=== PATIENT | male | born 1995 | race Hispanic/Latino ===

== ENCOUNTER 2020-07-05 15:18 | Emergency (ER) | payer OTHER ==
[2020-07-05] MEDS ORDERED: HYDROcodone 10MG/APAP 325MG 1 EA TAB PO ONE (15:38)
[2020-07-05 15:41] VITALS: O2SAT 98
--- NOTE | 2020-07-05 15:44 | ED.PDOC ---
History of Present Illness - General Chief Complaint: Trauma Stated Complaint: Fall from 5 feet, neck pain Time Seen by Provider: 07/05/20 15:38 Source: patient, RN notes reviewed Exam Limitations: no limitations - History of Present Illness Initial Comments: The patient is a 25 year old with no significant past medical history who presents with headache and neck pain. He states that he was working on a raised platform when he slipped and fell into a ditch. He states that he fell around 6 feet, maybe a bit more, and landed directly on his head. He did experience a brief LOC that he estimates lasted only a few seconds. He complains of headache, neck pain, upper back pain and chest wall pain. No focal weakness, numbness or tingling. No other complaints at this time. Allergies/Adverse Reactions: Allergies NO KNOWN ALLERGY Allergy (Verified 07/05/20 15:31) Home Medications: Ambulatory Orders NK 07/05/20 Review of Systems - Review of Systems Constitutional: Denies: chills, fever, weakness EENTM: Denies: eye pain, double vision, nose pain, nose congestion, throat pain, throat swelling Respiratory: Denies: cough, short of breath Cardiology: States: chest pain - chest wall pain Gastrointestinal/Abdominal: Denies: abdominal pain, nausea, vomiting Genitourinary: States: no symptoms reported Musculoskeletal: States: back pain, muscle pain, muscle stiffness, neck pain Skin: States: no symptoms reported Neurological: States: headache. Denies: numbness, paresthesia, tingling, weakness Endocrine: States: no symptoms reported Hematologic/Lymphatic: States: no symptoms reported All other Systems: Reviewed and Negative Family Medical History - Family History Mother Family History: Unknown Living Status: Unknown Physical Exam - Physical Exam General Appearance: Alert, Comfortable, No apparent distress Eye Exam: bilateral normal Ears, Nose, Throat: hearing grossly normal, normal ENT inspection Neck: other - C-collar placed on arrival Respiratory: no respiratory distress, no accessory muscle use, other - mild midline chest tenderness to palpation Cardiovascular/Chest: normal peripheral pulses, regular rate, rhythm, no edema, no gallop, no murmur Gastrointestinal/Abdominal: non tender, soft Back Exam: muscle spasm - paraspinous tenderness at the level of the thoracic spine, no bony tenderness, stepoff or deformity Extremity: normal range of motion, non-tender, normal inspection Neurologic: no motor/sensory deficits, alert, normal mood/affect, oriented x 3 Skin Exam: normal color Progress - Progress Progress: 07/05/20 15:46 Cervical collar placed on arrival. There is no weakness, numbness, tingling or focal neurologic complaint 07/05/20 16:32 Patient reassessed, workup as above. There is no radiographic evidence for acute injury. His pain is controlled, no neurologic symptoms. Will continue outpatient symptomatic management and he will follow up with his PCP. Home care instructions and return indications reviewed. - Results/Orders Results/Orders: Chest X-ray: Study: Single Frontal Radiograph of the Chest. Indication:chest wall pain Comparison: None Impression: Heart size normal. Lungs clear. No acute osseous abnormality. T-Spine X-ray: 3 radiographs thoracic spine Indication: back pain s/p fall Comparison: None Impression: Vertebral body height maintained. No acute fracture or malalignment. CT Head: Study: CT of the Head. Indication: fall > 6 feet with LOC Technique: Axial CT images of the head were acquired without intravenous contrast. This exam was performed according to our departmental dose-optimization program, which includes automated exposure control, adjustment of the mA and/or kV according to patient size and/or use of iterative reconstruction technique. Comparison: None. Findings: No acute ischemia, acute hemorrhage, mass, mass effect, midline shift, or extra-axial fluid collection identified by CT. Ventricles are normal in configuration without hydrocephalus. Brain parenchyma demonstrates a normal appearance for patient age. Paranasal sinuses are adequately aerated. Mastoid air cells are adequately aerated. Osseous structures and soft tissues are unremarkable. Impression: No acute intracranial abnormality by CT. Electronically signed by: Tacos Pérez MD 07/05/2020 4:22 PM [facility] - 2[address] CT Cervical Spine: Study: CT cervical spine. Indication: fall from > 6 feet with LOC, neck pain Technique: Axial CT images were acquired through the cervical spine without intravenous contrast. Coronal and sagittal reformats performed. This exam was performed according to our departmental dose-optimization program, which includes automated exposure control, adjustment of the mA and/or kV according to patient size and/or use of iterative reconstruction technique. Comparison: None Findings: Vertebral body height maintained. Straightening cervical spine. No acute fracture or subluxation. No high-grade stenosis. Impression: No acute cervical fracture. Departure - Departure Clinical Impression: Closed head injury Qualifiers: Encounter type: initial encounter Qualified Code(s): S09.90XA - Unspecified injury of head, initial encounter Cervical muscle strain Qualifiers: Encounter type: initial encounter Qualified Code(s): S16.1XXA - Strain of muscle, fascia and tendon at neck level, initial encounter Disposition: Discharge to Home or Self Care Condition: Good Departure Forms: ED Discharge - Pt. Copy, Patient Portal Self Enrollment Instructions: DI for Trauma, Closed Head Injury (DC) Diet: resume usual diet Activity: increase activity as tolerated Referrals: SHERLYN LUTZ [Primary Care Provider] - 1-2 Weeks Home Medications: Ambulatory Orders NK 07/05/20
--- NOTE | 2020-07-05 16:21 | RAD ---
Study: Single Frontal Radiograph of the Chest. Indication:chest wall pain Comparison: None Impression: Heart size normal. Lungs clear. No acute osseous abnormality. Electronically signed by: Tacos Pérez MD 07/05/2020 4:19 PM [facility]
--- NOTE | 2020-07-05 16:22 | CT ---
Study: CT cervical spine. Indication: fall from > 6 feet with LOC, neck pain Technique: Axial CT images were acquired through the cervical spine without intravenous contrast. Coronal and sagittal reformats performed. This exam was performed according to our departmental dose-optimization program, which includes automated exposure control, adjustment of the mA and/or kV according to patient size and/or use of iterative reconstruction technique. Comparison: None Findings: Vertebral body height maintained. Straightening cervical spine. No acute fracture or subluxation. No high-grade stenosis. Impression: No acute cervical fracture. Electronically signed by: Tacos Pérez MD 07/05/2020 4:21 PM [facility]
--- NOTE | 2020-07-05 16:23 | CT ---
Study: CT of the Head. Indication: fall > 6 feet with LOC Technique: Axial CT images of the head were acquired without intravenous contrast. This exam was performed according to our departmental dose-optimization program, which includes automated exposure control, adjustment of the mA and/or kV according to patient size and/or use of iterative reconstruction technique. Comparison: None. Findings: No acute ischemia, acute hemorrhage, mass, mass effect, midline shift, or extra-axial fluid collection identified by CT. Ventricles are normal in configuration without hydrocephalus. Brain parenchyma demonstrates a normal appearance for patient age. Paranasal sinuses are adequately aerated. Mastoid air cells are adequately aerated. Osseous structures and soft tissues are unremarkable. Impression: No acute intracranial abnormality by CT. Electronically signed by: Tacos Pérez MD 07/05/2020 4:22 PM [facility]
--- NOTE | 2020-07-05 16:24 | RAD ---
3 radiographs thoracic spine Indication: back pain s/p fall Comparison: None Impression: Vertebral body height maintained. No acute fracture or malalignment. Electronically signed by: Tacos Pérez MD 07/05/2020 4:22 PM [facility]
[2020-07-05 17:13] VITALS: BP 144/84; TEMP 98.2
== END 2020-07-05 16:57 | disposition home or self-care (01) ==
LOC: ER 15:18
DX: S06.0X1A Concussion with loss of consciousness of 30 minutes or less, initial encounter (principal); S16.1XXA Strain of muscle, fascia and tendon at neck level, initial encounter; R07.89 Other chest pain; W17.89XA Other fall from one level to another, initial encounter; Y93.89 Activity, other specified; Y92.9 Unspecified place or not applicable